=== PATIENT | male | born 1960 | race Caucasian/White ===

== ENCOUNTER 2018-11-18 08:16 | Emergency (ER) | payer OTHER ==
[2018-11-18 08:21] VITALS: BMI 24.3
--- NOTE | 2018-11-18 08:56 | PDOC ---
History of Present Illness - General History Source: Patient Exam Limitations: No Limitations - History of Present Illness Initial Comments: 11/18/18 10:46 The patient is a 58-year-old male, with a past medical history of borderline HTN , who presents to the ED with LT groin and LT testical pain/swelling that began on Friday morning (11/16). Patient reports passing out on Friday while seated at work. Denies any head trauma. Subsequently, the patient reports experiencing chills and sweating. He also noted blood in his urine on Friday that has resolved since then. He presents today with worsening pain. Patient was diagnosed with a UTI last month for which he received antibiotics. Patient is not sexually active. The patient denies any fevers, nausea, vomiting, diarrhea, constipation, or abdominal pain. Denies any chest pain or shortness of breath. Denies any urinary symptoms. Allergies: NKA Surgical History: None reported. Social History: Tobacco use (1 ppd, over 40 years), Social drinker. Denies any drug use. PCP: Dr. Abebe <Minerva Rutledge - Last Filed: 11/18/18 16:21> <Alejo Albarran - Last Filed: 11/18/18 16:30> - General Chief Complaint: Pain Stated Complaint: LT SIDE GROIN PAIN Time Seen by Provider: 11/18/18 08:54 Past History <Minerva Rutledge - Last Filed: 11/18/18 16:21> - Past Medical History COPD: No Other medical history: DENIES - Suicide/Smoking/Psychosocial Hx Smoking History: Current every day smoker Number of Cigarettes Smoked Daily: 20 Information on smoking cessation initiated: Yes Hx Alcohol Use: No Drug/Substance Use Hx: No <Alejo Albarran - Last Filed: 11/18/18 16:30> - Past Medical History Allergies/Adverse Reactions: Allergies Allergy/AdvReac Type Severity Reaction Status Date / Time No Known Allergies Allergy Verified 11/18/18 08:20 Home Medications: Ambulatory Orders Aspirin [ASA -] 81 mg PO DAILY 11/18/18 Ciprofloxacin [Cipro (Restricted To Id)] 500 mg PO BID #28 tablet 11/18/18 Ciprofloxacin [Cipro (Restricted To Id)] 500 mg PO BID #28 tablet 11/18/18 Review of Systems - Review of Systems Able to Perform ROS?: Yes Comments:: 11/18/18 10:47 CONSTITUTIONAL: (+)Chills, diaphoresis. No fever, no fatigue EYES: No visual changes ENT: No ear pain, no sore throat CARDIOVASCULAR: No chest pain, no palpitations RESPIRATORY: No cough, no SOB GI: No abdominal pain, no nausea, no vomiting, no constipation, no diarrhea GENITOURINARY: (+)LT groin pain, LT testical pain and swelling. No dysuria, no frequency, no hematuria MUSKULOSKELETAL: No back pain, no joint pain, no myalgias SKIN: No rash NEURO: No headache <Minerva Rutledge - Last Filed: 11/18/18 16:21> *Physical Exam - Vital Signs Last Vital Signs Temp Pulse Resp BP Pulse Ox 98.7 F 101 H 19 162/94 99 11/18/18 08:17 11/18/18 08:17 11/18/18 08:17 11/18/18 08:17 11/18/18 08:17 <Minerva Rutledge - Last Filed: 11/18/18 16:21> - Vital Signs Last Vital Signs Temp Pulse Resp BP Pulse Ox 98.7 F 101 H 19 162/94 99 11/18/18 08:17 11/18/18 08:17 11/18/18 08:17 11/18/18 08:17 11/18/18 08:17 - Physical Exam Comments: 11/18/18 15:06 EXAMINATION CONSTITUTIONAL: Well-appearing; well-nourished; in no apparent distress HEAD: Normocephalic; atraumatic EYES: PERRL; EOM intact ENMT: External appears normal; normal oropharynx NECK: Supple; non-tender; no cervical lymphadenopathy CARD: Normal S1, S2; no murmurs, rubs, or gallops RESP: Normal chest excursion with respiration; breath sounds clear and equal bilaterally; no wheezes, rhonchi, or rales ABD: Soft, non-distended; non-tender; no palpable organomegaly, no palpable hernias : + soft tissue swelling to the posterior aspect of left testicle, mildly ttp ; both testicles in nl lie. EXT: Normal ROM in all four extremities; non-tender to palpation; distal pulses intact SKIN: Warm, dry, no rash NEURO: No focal neurological deficiencies. <Alejo Albarran - Last Filed: 11/18/18 16:30> Moderate Sedation - Procedure Monitoring Vital Signs: Procedure Monitoring Vital Signs Temperature 98.7 F 11/18/18 08:17 Pulse Rate 101 H 11/18/18 08:17 Respiratory Rate 19 11/18/18 08:17 Blood Pressure 162/94 11/18/18 08:17 O2 Sat by Pulse Oximetry (%) 99 11/18/18 08:17 <AamirEdiMinerva - Last Filed: 11/18/18 16:21> - Procedure Monitoring Vital Signs: Procedure Monitoring Vital Signs Temperature 98.7 F 11/18/18 08:17 Pulse Rate 101 H 11/18/18 08:17 Respiratory Rate 19 11/18/18 08:17 Blood Pressure 162/94 11/18/18 08:17 O2 Sat by Pulse Oximetry (%) 99 11/18/18 08:17 <Alejo Albarran - Last Filed: 11/18/18 16:30> Heart Score/ECG Review - ECG Intrepretation Comment:: 11/18/18 09:44 EKG was reviewed by Dr. Albarran at 9:19. Sinus tachycardia at 106 bpm. Otherwise, normal ECG. <Minerva Rutledge - Last Filed: 11/18/18 16:21> ED Treatment Course - LABORATORY CBC & Chemistry Diagram: 11/18/18 09:26 11/18/18 09:26 <AamirMinerva - Last Filed: 11/18/18 16:21> - LABORATORY CBC & Chemistry Diagram: 11/18/18 09:26 11/18/18 09:26 <Alejo Albarran - Last Filed: 11/18/18 16:30> Medical Decision Making - Medical Decision Making 11/18/18 13:04 Dr. Abebe was paged and notified via phone service. <Minerva Rutledge - Last Filed: 11/18/18 16:21> - Medical Decision Making 11/18/18 14:25 Patient is a well-appearing 58-year-old male who presents to the ER with several complaints. Patient reports a syncopal episode while sitting in his office 2 days previously without preceding presyncopal symptoms. Patient reports a brief period of unconsciousness followed by generalized weakness and diaphoresis. Patient denies previous history of similar episodes and has not had any recurrences since. Patient denies chest pain/shortness of breath/leg swelling/previous history of PE/DVT. Patient also reports atraumatic swelling of the left testicle with 2 episodes of hematuria. Patient had been treated for UTI in the past. In the ER, patient is awake and alert, initially afebrile, now with a temperature of 100.8. EKG shows no evidence of acute ischemia, sinus tachycardia is noted. Chest x-ray reveals no evidence of infiltrate or effusion , no evidence of cardiomegaly is noted. CBC reveals leukocytosis with predominance of neutrophils. CMP is within normal limit. Urinalysis reveals pyuria with hematuria. Urine culture obtained. IV ceftriaxone administered. We' ll administer Tylenol and additional IV fluids. Will reassess. no indication for admission as syncope occured 72 hrs previously. i discussed the case with Dr. francisco, pts pmd don'the agrees with d[facility] dr. carlson also consulted, agrees with outpt f/u. 11/18/18 16:16 Patient reassessed. Fever has resolved and so his tachycardia. Patient is resting comfortably and is symptom-free at moment. I advised him to return immediately if she develops high fever again. Will discharge with by mouth antibiotics and outpatient follow-up. 11/18/18 16:17 <Alejo Albarran - Last Filed: 11/18/18 16:30> *DC/Admit/Observation/Transfer - Attestations Scribe Attestion: 11/18/18 10:49 Documentation prepared by Minerva Rutledge, acting as medical research associate for Alejo Albarran MD. <Minerva Rutledge - Last Filed: 11/18/18 16:21> - Attestations Physician Attestion: 11/18/18 14:25 The documentation was prepared by the scribe under my direct supervision. I have reviewed the documentation which correctly represents the findings, medical decision-making and critical action taken by me. <Alejo Albarran - Last Filed: 11/18/18 16:30> Diagnosis at time of Disposition: Hydrocele in adult Syncope Qualifiers: Syncope type: unspecified Qualified Code(s): R55 - Syncope and collapse Urinary tract infection Qualifiers: Urinary tract infection type: site unspecified Hematuria presence: with hematuria Qualified Code(s): N39.0 - Urinary tract infection, site not specified - Discharge Dispostion Disposition: HOME Condition at time of disposition: Stable - Prescriptions Prescriptions: Ciprofloxacin [Cipro (Restricted To Id)] 500 mg PO BID #28 tablet - Referrals Referrals: Chong Abebe MD [Primary Care Provider] - Drake El MD., [Staff Physician] - - Patient Instructions Printed Discharge Instructions: DI for Syncope in Adults (Fainting), DI for Urinary Tract Infection (UTI), DI for Hydrocele-Adult - Post Discharge Activity
[2018-11-18] MEDS ORDERED: SODIUM CHLORIDE 1,000 ML IV STA ×2 (09:18→14:32)
[2018-11-18 09:40] LABS: BASO % 0.5 % (0-2.0); EOS % 0.3 % (0-4.5); HEMATOCRIT 40.6 % (35.4-49); HEMOGLOBIN 13.8 GM/dL (11.7-16.9); LYMPH % 6.8 % (8-40); MCH 29.9 pg (25.7-33.7); MEAN CELL VOLUME 87.9 fl (80-96); MONO % 5.6 % (3.8-10.2); NEUT % 86.8 % (42.8-82.8); PLATELET COUNT 182 K/MM3 (134-434); RBC 4.62 M/mm3 (4.00-5.60); RDW 13.9 % (11.9-15.9); WHITE BLOOD COUNT 13.9 K/mm3 (4.0-10.0)
[2018-11-18 10:12] LABS: ALBUMIN 3.5 g/dl (3.4-5.0); ALK PHOS 85 U/L (45-117); ANION GAP 6 MMOL/L (8-16); BILIRUBIN,TOTAL 0.5 mg/dL (0.2-1); BLOOD UREA NITROGEN 20 mg/dL (7-18); CALCIUM 8.7 mg/dL (8.5-10.1); CHLORIDE 104 mmol/L (98-107); CO2 26 mmol/L (21-32); CREATININE 1.2 mg/dL (0.55-1.3); GLUCOSE,RANDOM 76 mg/dL (74-106); POTASSIUM 3.9 mmol/L (3.5-5.1); SGOT/AST 8 U/L (15-37); SGPT/ALT 17 U/L (13-61); SODIUM 136 mmol/L (136-145); TOT PROT 7.5 g/dl (6.4-8.2)
[2018-11-18 11:29] LABS: URINE APPEARANCE SLCLOUDY; URINE BILIRUBIN NEGATIVE (<2.0 mg/dL); URINE COLOR YELLOW; URINE GLUCOSE (UA) NEGATIVE (NEGATIVE); URINE KETONE NEGATIVE (NEGATIVE); URINE LEUK ESTERASE 3+ (NEGATIVE); URINE NITRITE NEGATIVE (NEGATIVE); URINE PROTEIN NEGATIVE (NEGATIVE); URINE UROBILINOGEN NEGATIVE mg/dL (0.2-1.0)
[2018-11-18 11:42] LABS: URINE HYALINE CAST 2 /lpf; URINE MUCUS RARE
--- NOTE | 2018-11-18 12:07 | EKG ---
Test Reason : Blood Pressure : / mmHG Vent. Rate : 106 BPM Atrial Rate : 106 BPM P-R Int : 130 ms QRS Dur : 092 ms QT Int : 326 ms P-R-T Axes : 047 027 029 degrees QTc Int : 433 ms POOR DATA QUALITY, INTERPRETATION MAY BE ADVERSELY AFFECTED SINUS TACHYCARDIA OTHERWISE NORMAL ECG WHEN COMPARED WITH ECG OF 20-MAR-1998 20:01, NO SIGNIFICANT CHANGE WAS FOUND Confirmed by TOPHER BOYCE, ALBA ([id number]) on 11/18/2018 12:06:50 PM Referred By: Confirmed By:ALBA OBANDO MD
[2018-11-18] MEDS ORDERED: CEFTRIAXONE 1,000 MG in DEXTROSE 5%-WATER - 50 ML IVPB ONE (12:53)
[2018-11-18] MEDS ORDERED: CEFTRIAXONE 1 GM/50 ML BAG ONE (12:57)
[2018-11-18 14:27] VITALS: BP 129/70
[2018-11-18] MEDS ORDERED: ACETAMINOPHEN INJECTION 100 ML IVPB ONE (14:29)
[2018-11-18] MEDS ORDERED: ACETAMINOPHEN 500 MG TABLET (FP) PO ONE (14:31)
[2018-11-18] MEDS ORDERED: ACETAMINOPHEN 1000 MG/100 ML VIAL (NON FORMULARY) IVPB ONE (14:38)
[2018-11-18 16:12] VITALS: PULSE 99; TEMP 98.8
== END 2018-11-18 16:32 | disposition home or self-care (01) ==
LOC: JER 08:16
PROC: 3E033NZ Introduction of Analgesics, Hypnotics, Sedatives into Peripheral Vein, Percutaneous Approach (ICD-10-PCS; principal; 2018-11-18)
PROC: 3E03329 Introduction of Other Anti-infective into Peripheral Vein, Percutaneous Approach (ICD-10-PCS; 2018-11-18)
PROC: 3E0337Z Introduction of Electrolytic and Water Balance Substance into Peripheral Vein, Percutaneous Approach (ICD-10-PCS; 2018-11-18)
DX: R55 Syncope and collapse (principal); N39.0 Urinary tract infection, site not specified
CPT/HCPCS: 36415; 71046-TC-FY; 76870-TC; 80053; 81003; 81015; 82550; 84484; 85025; 87086; 87186; 93005; 93010; 99283-25; J0131; J7030